=== PATIENT | male | born 1935 | race Caucasian/White ===

== ENCOUNTER 2019-10-10 11:23 | Inpatient (IN) | payer MEDICARE ==
[2019-10-09 14:30] VITALS: BP 130/56
[~2019-10-10] VITALS: Ht 172.7 cm; Wt 98.9 kg
--- NOTE | 2019-10-10 11:38 | NUR ---
Dr Velasquez at the bedside for MSE.
[2019-10-10 12:01] LABS: BASOPHILS # (AUTO) 0.1 K/uL (0.0-8.0); EOSINOPHILS # (AUTO) 0.2 K/uL (0.0-0.7); EOSINOPHILS % (AUTO) 2.1 % (0.0-7.0); HEMATOCRIT 35.7 % (36.7-47.1); HEMOGLOBIN 11.9 g/dL (12.5-16.3); LYMPHOCYTES # (AUTO) 2.9 K/uL (20.0-40.0); LYMPHOCYTES % (AUTO) 34.4 % (20.5-51.5); MEAN CORPUSCULAR HEMOGLOBIN 33.7 uug (23.8-33.4); MEAN CORPUSCULAR HGB CONC 34 g/dL (32.5-36.3); MEAN CORPUSCULAR VOLUME 100.7 fL (73.0-96.2); MONOCYTES # (AUTO) 0.8 K/uL (2.0-10.0); MONOCYTES % (AUTO) 9.2 % (0.0-11.0); NEUTROPHILS # (AUTO) 4.5 K/uL (1.8-8.9); NEUTROPHILS % (AUTO) 53.3 % (38.5-71.5); PLATELET COUNT (AUTO) 206 K/uL (152-348); RED BLOOD CELL COUNT(AUTO) 3.54 MIL/uL (4.06-5.63); WHITE BLOOD COUNT (AUTO) 8.4 K/uL (3.6-10.2)
[2019-10-10 12:16] LABS: CARBON DIOXIDE 30 mmol/L (21-32); CHLORIDE 94 mmol/L (98-107); CREATININE 6.9 mg/dL (0.6-1.3); GLUCOSE 101 mg/dL (74-106); POTASSIUM 5.1 mmol/L (3.5-5.1); UREA NITROGEN, BLOOD 64 mg/dL (7-18)
[2019-10-10] MEDS ORDERED: DIPH25CA83 PO (12:19)
[2019-10-10] MEDS ORDERED: ROSU5TAB PO (12:19)
[2019-10-10] MEDS ORDERED: ASPI-605 PO (12:19)
[2019-10-10] MEDS ORDERED: TORS20TA3 PO (12:19)
[2019-10-10] MEDS ORDERED: GABA-532 PO (12:19)
[2019-10-10] MEDS ORDERED: COLC0.6C3 PO (12:19)
[2019-10-10] MEDS ORDERED: UBID100C13 PO (12:19)
[2019-10-10] MEDS ORDERED: SEVE800T8 PO (12:19)
[2019-10-10] MEDS ORDERED: METO-358 PO (12:19)
[2019-10-10] MEDS ORDERED: ACET-69 PO (12:19)
[2019-10-10] MEDS ORDERED: FOLI0.8T2 PO (12:19)
[2019-10-10] MEDS ORDERED: ALLO100T PO (12:19)
[2019-10-10] MEDS ORDERED: DOCU-141 PO (12:19)
[2019-10-10] MEDS ORDERED: LOSA50TA39 PO (12:19)
[2019-10-10] MEDS ORDERED: CHOL200078 PO (12:19)
[2019-10-10] MEDS ORDERED: QUIN300T3 PO (12:19)
[2019-10-10 12:29] LABS: ALANINE AMINOTRANSFERASE 17 U/L (16-63); ALKALINE PHOSPHATASE 121 U/L (50-136); ASPARTATE AMINOTRANSFERASE 7 U/L (15-37); BILIRUBIN,DIRECT 0.1 mg/dL (0.0-0.2); BILIRUBIN,TOTAL 0.5 mg/dL (0.2-1.0); TOTAL PROTEIN, SERUM 6.2 g/dL (6.4-8.2)
--- NOTE | 2019-10-10 12:36 | NUR ---
Paged [facility] for Dr Boucher for admit.
[2019-10-10] MEDS ORDERED: ACETAMINOPHEN/DIPHENHYDRAMINE TABLET PO PRN (15:30)
[2019-10-10] MEDS ORDERED: HOME MED MISCELLANEOUS XX SCH ×3 (15:30)
[2019-10-10 16:18] VITALS: BP 148/61
[2019-10-10] MEDS ORDERED: GABAPENTIN 100 MG CAPSULE PO SCH (17:00)
[2019-10-10 20:00] VITALS: BP 116/47
[2019-10-10] MEDS: diphenhydrAMINE 25 MG CAP PO PRN (20:03)
[2019-10-10] MEDS: ATORVASTATIN 10 MG TABLET PO SCH (21:00)
[2019-10-10] MEDS: SEVELAMER CARBONATE 800 MG TABLET PO SCH (21:00)
[2019-10-11] VITALS: BP 130/66
[2019-10-11 06:31] LABS: BASOPHILS # (AUTO) 0.1 K/uL (0.0-8.0); BASOPHILS % (AUTO) 0.8 % (0.0-2.0); EOSINOPHILS # (AUTO) 0.2 K/uL (0.0-0.7); EOSINOPHILS % (AUTO) 1.7 % (0.0-7.0); HEMATOCRIT 37.1 % (36.7-47.1); HEMOGLOBIN 12.2 g/dL (12.5-16.3); LYMPHOCYTES # (AUTO) 3.1 K/uL (20.0-40.0); LYMPHOCYTES % (AUTO) 32.6 % (20.5-51.5); MEAN CORPUSCULAR HEMOGLOBIN 33.3 uug (23.8-33.4); MEAN CORPUSCULAR HGB CONC 33 g/dL (32.5-36.3); MEAN CORPUSCULAR VOLUME 101.7 fL (73.0-96.2); MONOCYTES # (AUTO) 0.9 K/uL (2.0-10.0); MONOCYTES % (AUTO) 9.7 % (0.0-11.0); NEUTROPHILS # (AUTO) 5.2 K/uL (1.8-8.9); NEUTROPHILS % (AUTO) 55.2 % (38.5-71.5); PLATELET COUNT (AUTO) 200 K/uL (152-348); RED BLOOD CELL COUNT(AUTO) 3.65 MIL/uL (4.06-5.63); WHITE BLOOD COUNT (AUTO) 9.5 K/uL (3.6-10.2)
[2019-10-11 06:42] LABS: CARBON DIOXIDE 27 mmol/L (21-32); CHLORIDE 105 mmol/L (98-107); CREATININE 4.9 mg/dL (0.6-1.3); GLUCOSE 100 mg/dL (74-106); POTASSIUM 4.5 mmol/L (3.5-5.1); UREA NITROGEN, BLOOD 36 mg/dL (7-18)
--- NOTE | 2019-10-11 07:26 | NUR ---
Pt rested well in between care; no acute distress; HD last night 2000 ml out; needs assisted; continue to monitor; continue plan of care
[2019-10-11] MEDS: SEVELAMER CARBONATE 800 MG TABLET PO SCH ×4 (08:20→18:15)
[2019-10-11] MEDS: COLCHICINE 0.6 MG TABLET PO SCH (09:30)
[2019-10-11] MEDS: ALLOPURINOL 100 MG TABLET PO SCH (09:30)
[2019-10-11] MEDS: DOCUSATE SODIUM 100 MG CAPSULE PO SCH (09:30)
[2019-10-11] MEDS: ASPIRIN EC 81 MG TABLET.DR PO SCH (09:30)
[2019-10-11] MEDS: FOLIC ACID/VITAMIN B COMP W-C TABLET PO SCH (09:30)
[2019-10-11] MEDS: CHOLECALCIFEROL 1,000 UNIT TABLET PO SCH (09:30)
[2019-10-11] MEDS ORDERED: GABAPENTIN 300 MG CAPSULE PO ONE (11:00)
[2019-10-11 12:00] VITALS: BP 109/55
[2019-10-11 15:59] VITALS: BP 140/60
[2019-10-11] MEDS ORDERED: GABAPENTIN 300 MG CAPSULE PO PRN (16:45)
--- NOTE | 2019-10-11 19:30 | NUR ---
Received patient resting, easily to arouse. A/Ox4. No signs of acute distress noted. No complaints of pain or SOB. Vitals WNL. Heplock on the right upper arm is intact and patent. 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 Brace noted to right arm. Safety measures initiated. Bed is low and locked, call light within reach, bed alarm on. Will continue to monitor.
[2019-10-11 20:04] VITALS: BP 134/47
[2019-10-11] MEDS ORDERED: ASPIRIN/ACETAMINOPHEN/CAFFEINE TABLET PO PRN (21:00)
[2019-10-11] MEDS ORDERED: diphenhydrAMINE 25 MG CAP PO PRN (21:00)
[2019-10-11] MEDS: ATORVASTATIN 10 MG TABLET PO SCH (21:04)
[2019-10-12] MEDS: ONDANSETRON 4 MG/2 ML VIAL IV PRN
[2019-10-12 00:04] VITALS: BP 154/71
--- NOTE | 2019-10-12 00:08 | NUR ---
Patient requested Benadryl, patient had an episode of emesis today while eating dinner, only ate a little. Now requesting food. While patient was eating, he took his Benadryl as well, did not complain of any nausea, however soon after patient had another episode of emesis. Gave PRN Zofran, patient also vomited Benadryl, wasted Benadryl in Pyxis. Will continue to monitor
[2019-10-12] MEDS: diphenhydrAMINE 25 MG CAP PO PRN (00:48)
[2019-10-12 04:00] VITALS: BP 155/49
--- NOTE | 2019-10-12 05:37 | NUR ---
After episode of vomiting and Zofran given. Patient stated feeling better and requested Benadryl. Patient slept well after. No more episodes of N/V. Patient able to ambulate to restroom with assist with a steady gait. All needs met. Safety measures given. Will endorse to next shift.
[2019-10-12 08:06] LABS: HEPATITIS B SURFACE AB Non Reactive (.); HEPATITIS B SURFACE AG Negative (Negative)
[2019-10-12] MEDS: FOLIC ACID/VITAMIN B COMP W-C TABLET PO SCH (09:15)
[2019-10-12] MEDS: DOCUSATE SODIUM 100 MG CAPSULE PO SCH (09:15)
[2019-10-12] MEDS: SEVELAMER CARBONATE 800 MG TABLET PO SCH ×3 (09:15→17:52)
[2019-10-12] MEDS: CHOLECALCIFEROL 1,000 UNIT TABLET PO SCH (09:15)
[2019-10-12] MEDS: ALLOPURINOL 100 MG TABLET PO SCH (09:15)
[2019-10-12] MEDS: ASPIRIN EC 81 MG TABLET.DR PO SCH (09:15)
[2019-10-12] MEDS: GABAPENTIN 100 MG CAPSULE PO SCH (09:15)
[2019-10-12] MEDS: COLCHICINE 0.6 MG TABLET PO SCH (09:16)
[2019-10-12] MEDS: METOPROLOL SUCCINATE XL 50 MG TAB.SR.24H PO SCH (10:54)
[2019-10-12] MEDS: LOSARTAN POTASSIUM 50 MG TABLET PO SCH (10:55)
[2019-10-12] MEDS ORDERED: BENZOCAINE/MENTH/CETYLPYRD LOZENGE MM PRN (11:00)
[2019-10-12 11:32] VITALS: BP 160/85
[2019-10-12 15:19] VITALS: BP 114/57
[2019-10-12] MEDS: ACETAMINOPHEN ES 500 MG TABLET PO PRN (17:52)
--- NOTE | 2019-10-12 18:07 | NUR ---
Patient AAOx4. No s/s of acute distress. SR on monitor. No complaints of pain or N/V; tolerated meals throughout shift. Resting comfortably in bed eating dinner at this time. at bedside. IV intact and patent. All needs attended at all times. Safety measures implemented and effective. Will endorse care accordingly.
--- NOTE | 2019-10-12 19:30 | NUR ---
Received patient awake and alert in bed, no acute distress noted. No complaints of pain or SOB at this time. Vitals WNL. Patient stated no episodes of vomiting today. Able to tolerate food more. Heplock on the right upper arm is intact and patent. Right arm brace intact, left wrist splint intact. Safety measures initiated. Bed is low and locked, call light within reach. Will continue to monitor.
[2019-10-12 20:00] VITALS: BP 146/55
[2019-10-12] MEDS: ATORVASTATIN 10 MG TABLET PO SCH (21:23)
[2019-10-13 00:47] VITALS: BP 117/54
[2019-10-13 04:00] VITALS: BP 151/58
[2019-10-13 07:55] VITALS: BP 193/94
--- NOTE | 2019-10-13 08:10 | NUR ---
For sbp in the with Hr of [address] Licea in the unit notified and orders received.
[2019-10-13] MEDS ORDERED: hydrALAZINE HCL 20 MG/1 ML VIAL IV PRN (08:15)
[2019-10-13] MEDS ORDERED: hydrALAZINE HCL 20 MG/1 ML VIAL IV ONE (08:15)
[2019-10-13] MEDS: SEVELAMER CARBONATE 800 MG TABLET PO SCH ×3 (08:21→17:11)
[2019-10-13] MEDS: ASPIRIN EC 81 MG TABLET.DR PO SCH (08:21)
[2019-10-13] MEDS: ALLOPURINOL 100 MG TABLET PO SCH (08:21)
[2019-10-13] MEDS: CHOLECALCIFEROL 1,000 UNIT TABLET PO SCH (08:21)
[2019-10-13] MEDS: COLCHICINE 0.6 MG TABLET PO SCH (08:21)
[2019-10-13] MEDS: GABAPENTIN 100 MG CAPSULE PO SCH (08:21)
[2019-10-13] MEDS: DOCUSATE SODIUM 100 MG CAPSULE PO SCH (08:21)
[2019-10-13] MEDS: FOLIC ACID/VITAMIN B COMP W-C TABLET PO SCH (08:21)
[2019-10-13] MEDS ORDERED: BUMETANIDE 1 MG TABLET PO SCH (09:00)
[2019-10-13 12:06] VITALS: BP 152/56
--- NOTE | 2019-10-13 14:52 | NUR ---
Attending Alan called to be notified that patient is refusing ekg monitoring. Addendum: 10/13/19 at 1647 by LAINEY CROWLEY RN the above note meant for another patient user error.
[2019-10-13 15:38] VITALS: BP 184/86
--- NOTE | 2019-10-13 15:40 | NUR ---
SBP in the 184/81 with heart rate of 81 hemodialysis in the unit and as requested sbp not to be treated patient about to be dialyzed.
--- NOTE | 2019-10-13 16:42 | NUR ---
patient care endorse to rn. Buckley who will continue with care plan. Addendum: 10/13/19 at 1644 by LAINEY CROWLEY RN patient undergoing Hemodialysis. with sbp within normal limits.
[2019-10-13 20:00] VITALS: BP 154/81
[2019-10-13] MEDS ORDERED: QUININE 300 MG PO SCH ×2 (21:00)
[2019-10-13] MEDS: ATORVASTATIN 10 MG TABLET PO SCH (21:22)
[2019-10-13] MEDS ORDERED: GABAPENTIN 300 MG CAPSULE PO ONE (22:00)
[2019-10-13] MEDS: ACETAMINOPHEN ES 500 MG TABLET PO PRN (22:41)
[2019-10-14] VITALS: BP 148/56
[2019-10-14 04:00] VITALS: BP 143/43
[2019-10-14] MEDS: SEVELAMER CARBONATE 800 MG TABLET PO SCH ×2 (08:36→12:16)
[2019-10-14] MEDS: CHOLECALCIFEROL 1,000 UNIT TABLET PO SCH (08:36)
[2019-10-14] MEDS: FOLIC ACID/VITAMIN B COMP W-C TABLET PO SCH (08:36)
[2019-10-14] MEDS: ALLOPURINOL 100 MG TABLET PO SCH (08:36)
[2019-10-14] MEDS: GABAPENTIN 100 MG CAPSULE PO SCH (08:36)
[2019-10-14] MEDS: ASPIRIN EC 81 MG TABLET.DR PO SCH (08:36)
[2019-10-14] MEDS: COLCHICINE 0.6 MG TABLET PO SCH (08:36)
[2019-10-14] MEDS: DOCUSATE SODIUM 100 MG CAPSULE PO SCH (08:36)
[2019-10-14] MEDS: ONDANSETRON 4 MG/2 ML VIAL IV PRN (08:44)
[2019-10-14] MEDS: LOSARTAN POTASSIUM 50 MG TABLET PO SCH (08:49)
[2019-10-14] MEDS: METOPROLOL SUCCINATE XL 50 MG TAB.SR.24H PO SCH (08:50)
[2019-10-14] MEDS ORDERED: TORSEMIDE 20 MG PO SCH (09:00)
--- NOTE | 2019-10-14 09:11 | NUR ---
Patient complained of pain 7/10 on right arm and back, informed Dr. Bala Boucher who is the unit and ordered [place] 10/325mg PO Q 6hrs PRN.
[2019-10-14] MEDS ORDERED: HYDROCODONE/APAP 10-325 MG TABLET PO PRN (09:15)
--- NOTE | 2019-10-14 10:00 | NUR ---
Offered to patient [place] PRN as ordered for pain but patient refused and said that he is not in pain at this time. Assisted with his needs. Call light and frequently used items placed within reach.
--- NOTE | 2019-10-14 11:00 | NUR ---
Patient seen and examined by Dr. Bala Boucher, made patient aware of discharge plan for today.
[2019-10-14 11:38] VITALS: BP 144/60
[2019-10-14 15:31] VITALS: BP 136/63
--- NOTE | 2019-10-14 16:45 | NUR ---
Discharge instructions provided to the patient with verbalized understanding. All belongings well accounted for and brought with the patient. Discharge papers signed by and given to the patient. Patient remains alert, oriented x 4, not in any form of distress, on room air. He denies any pain or discomfort at this time. Patient picked up by [facility] transportation transferred via gurney at 1555. Report given to Kiera from [facility].
[2019-10-14] MEDS ORDERED: QUININE 300 MG PO SCH (21:00)
== END 2019-10-14 16:00 | DRG 291 ==
LOC: ER 11:23 → TELE3 13:43 → MEDSURG3 10-14 11:09
PROVIDERS: ADMIT Internal Medicine Nephrology; ATTEND Internal Medicine Nephrology
PROC: 5A1D70Z Performance of Urinary Filtration, Intermittent, Less than 6 Hours Per Day (ICD-10-PCS; principal; 2019-10-10)
DX: I13.2 Hypertensive heart and chronic kidney disease with heart failure and with stage 5 chronic kidney disease, or end stage renal disease (principal); I50.23 Acute on chronic systolic (congestive) heart failure; N18.6 End stage renal disease; I25.10 Atherosclerotic heart disease of native coronary artery without angina pectoris; Z95.5 Presence of coronary angioplasty implant and graft; Z99.2 Dependence on renal dialysis; Z85.118 Personal history of other malignant neoplasm of bronchus and lung; M89.8X9 Other specified disorders of bone, unspecified site; G72.9 Myopathy, unspecified; R26.2 Difficulty in walking, not elsewhere classified; R19.7 Diarrhea, unspecified; M80.83 Other osteoporosis with current pathological fracture, forearm; E83.9 Disorder of mineral metabolism, unspecified
CPT/HCPCS: 36415; 70030-TC; 71045; 73080; 73090; 84100; 85025; 85730; 86706; 87340; 90937; 93005; 93307; A4663; A9150; G0378; J0360; J2405; J8499; Q0163